=== PATIENT | female | born 1950 | race Asian ===

== ENCOUNTER 2018-10-10 15:58 | Inpatient (IN) | payer OTHER ==
[2018-10-10 20:06] LABS: ADD MAN DIFF? NO
[2018-10-10 20:11] LABS: WHITE BLOOD COUNT 4.1 10^3/ul (4.8-10.8)
[2018-10-10 20:11] LABS: EOSINOPHILS # 0.1 10^3/ul (0.0-0.5); EOSINOPHILS % 1.7 % (0.0-7.0); HEMATOCRIT 38.9 % (37.0-47.0); HEMOGLOBIN 12.5 g/dl (12.0-16.0); LYMPHOCYTES # 1.4 10^3/ul (0.8-2.9); LYMPHOCYTES % 35.1 % (15.0-51.0); MEAN CORPUSCULAR HEMOGLOBIN 29.6 pg (29.0-33.0); MEAN CORPUSCULAR HGB CONC 32.1 g/dl (32.0-37.0); MEAN PLATELET VOLUME 9.6 fl (7.4-10.4); MONOCYTE # 0.4 10^3/ul (0.3-0.9); MONOCYTES % 9.8 % (0.0-11.0); NEUTROPHIL # 2.1 10^3/ul (1.6-7.5); NEUTROPHILS % 52.2 % (39.0-77.0); PLATELET COUNT 216 10^3/UL (140-415); RED BLOOD COUNT 4.23 10^6/ul (4.20-5.40); RED CELL DISTRIBUTION WIDTH 13.7 % (11.5-14.5)
[2018-10-10 20:24] LABS: INR 0.87; PROTIME 11.9 Sec (11.9-14.9); PT RATIO 0.9
[2018-10-10 20:25] LABS: PARTIAL THROMBOPLASTIN TIME 27.6 Sec (23.0-35.0)
[2018-10-10 20:26] LABS: ALANINE AMINOTRANSFERASE 17 IU/L (13-69); ALBUMIN 4.4 g/dl (3.3-4.9); ALBUMIN/GLOBULIN RATIO 1.04; ALKALINE PHOSPHATASE 79 IU/L (42-121); ANION GAP 10 (5-13); ASPARTATE AMINO TRANSFERASE 31 IU/L (15-46); BILIRUBIN,INDIRECT 0.5 mg/dl (0-1.1); BILIRUBIN,TOTAL 0.5 mg/dl (0.2-1.3); BLOOD UREA NITROGEN 16 mg/dl (7-20); CALCIUM 9.2 mg/dl (8.4-10.2); CARBON DIOXIDE 32 mmol/L (21-31); CHLORIDE 103 mmol/L (97-110); CREATININE 0.65 mg/dl (0.44-1.00); Estimated GFR > 60 mL/min (>60); GLUCOSE 157 mg/dl (70-220); POTASSIUM 3.1 mmol/L (3.5-5.1); SODIUM 145 mmol/L (135-144); TOTAL PROTEIN 8.6 g/dl (6.1-8.1)
[2018-10-10 20:38] LABS: B-TYPE NATRIURETIC PEPTIDE 119 PG/ML (0-125); TROPONIN-I < 0.012 ng/ml (0.000-0.120)
[2018-10-10 22:25] LABS: LACTIC ACID 1.1 mmol/L (0.5-2.0)
[2018-10-11] MEDS ORDERED: NACL 0.9% 3 ML SYG IV
[2018-10-11] MEDS ORDERED: ONDANSETRON 4 MG INJ IV
[2018-10-11] MEDS ORDERED: ACETAMINOPHEN 325 MG TAB PO
[2018-10-11] MEDS ORDERED: ALBUTEROL/IPRATROPIUM (NEB) 3 ML AMP HHN
[2018-10-11] MEDS: FUROSEMIDE 20 MG INJ IV ×2 (00:21→06:00)
[2018-10-11 00:24] LABS: CREATINE KINASE 74 IU/L (23-200)
[2018-10-11 00:25] LABS: LACTIC ACID 0.9 mmol/L (0.5-2.0)
[2018-10-11 00:37] LABS: CK INDEX 0.7; CK-MB 0.54 ng/ml (0.0-2.4); TROPONIN-I < 0.012 ng/ml (0.000-0.120)
[2018-10-11 04:34] LABS: ADD MAN DIFF? NO
[2018-10-11 04:35] LABS: WHITE BLOOD COUNT 3.9 10^3/ul (4.8-10.8)
[2018-10-11 04:35] LABS: EOSINOPHILS # 0.1 10^3/ul (0.0-0.5); EOSINOPHILS % 1.8 % (0.0-7.0); HEMATOCRIT 37.8 % (37.0-47.0); HEMOGLOBIN 12.1 g/dl (12.0-16.0); LYMPHOCYTES # 1.1 10^3/ul (0.8-2.9); LYMPHOCYTES % 28.5 % (15.0-51.0); MEAN CORPUSCULAR HEMOGLOBIN 28.9 pg (29.0-33.0); MEAN CORPUSCULAR VOLUME 90.4 fl (82.0-101.0); MEAN PLATELET VOLUME 10.6 fl (7.4-10.4); MONOCYTE # 0.4 10^3/ul (0.3-0.9); MONOCYTES % 11.1 % (0.0-11.0); NEUTROPHIL # 2.2 10^3/ul (1.6-7.5); NEUTROPHILS % 57.3 % (39.0-77.0); PLATELET COUNT 210 10^3/UL (140-415); RED BLOOD COUNT 4.18 10^6/ul (4.20-5.40); RED CELL DISTRIBUTION WIDTH 13.8 % (11.5-14.5)
[2018-10-11 04:44] LABS: HEMOGLOBIN A1C 7.8 % (0-5.9)
[2018-10-11 04:57] LABS: ALANINE AMINOTRANSFERASE 30 IU/L (13-69); ALBUMIN 3.7 g/dl (3.3-4.9); ALBUMIN/GLOBULIN RATIO 0.92; ALKALINE PHOSPHATASE 88 IU/L (42-121); ANION GAP 7 (5-13); ASPARTATE AMINO TRANSFERASE 25 IU/L (15-46); BILIRUBIN,INDIRECT 0.5 mg/dl (0-1.1); BILIRUBIN,TOTAL 0.5 mg/dl (0.2-1.3); BLOOD UREA NITROGEN 14 mg/dl (7-20); CALCIUM 8.7 mg/dl (8.4-10.2); CARBON DIOXIDE 30 mmol/L (21-31); CHLORIDE 107 mmol/L (97-110); CHOLESTEROL 198 mg/dl (100-200); CREATINE KINASE 73 IU/L (23-200); CREATININE 0.58 mg/dl (0.44-1.00); Estimated GFR > 60 mL/min (>60); GLUCOSE 175 mg/dl (70-220); HDL CHOLESTEROL 65 mg/dl (35-98); LDL CHOLESTEROL,CALCULATED 114 mg/dl; MAGNESIUM 1.9 mg/dl (1.7-2.5); SODIUM 144 mmol/L (135-144); TOTAL PROTEIN 7.7 g/dl (6.1-8.1); TRIGLYCERIDES 97 mg/dl (0-149)
[2018-10-11 05:02] LABS: POTASSIUM 2.7 mmol/L (3.5-5.1)
[2018-10-11 05:08] LABS: CK INDEX 0.6; CK-MB 0.46 ng/ml (0.0-2.4); TROPONIN-I < 0.012 ng/ml (0.000-0.120)
[2018-10-11] MEDS ORDERED: GLUCOSE GEL 15 GRAM TUBE PO ×2 (06:00)
[2018-10-11] MEDS ORDERED: GLUCOSE GEL 15 GRAM TUBE BUCCAL (06:00)
[2018-10-11] MEDS ORDERED: DEXTROSE 50% 50 ML SYRINGE IV ×2 (06:00)
[2018-10-11] MEDS ORDERED: GLUCAGON 1 MG INJ IM (06:00)
[2018-10-11] MEDS: POTASSIUM CHLORIDE 100 ML IVPB ×3 (06:56→12:00)
[2018-10-11] MEDS: ACCU-CHEK XX ×4 (07:42→20:12)
[2018-10-11] MEDS ORDERED: PIOGLITAZONE 45 MG TAB PO (09:00)
[2018-10-11] MEDS: GABAPENTIN 100 MG CAP PO (09:24)
[2018-10-11] MEDS: PIOGLITAZONE 15 MG TAB PO (09:24)
[2018-10-11] MEDS: ASPIRIN (EC) 81 MG TAB PO (09:24)
[2018-10-11] MEDS: ATENOLOL 25 MG TAB PO (09:25)
[2018-10-11] MEDS: AMLODIPINE 10 MG TAB PO (09:25)
[2018-10-11] MEDS: HEPARIN 5,000 UNIT/1 ML VIAL SC ×2 (09:29→20:23)
[2018-10-11] MEDS: metFORMIN 500 MG TAB PO (12:32)
[2018-10-11] MEDS: LINAGLIPTIN 5 MG TABLET PO (12:33)
[2018-10-11] MEDS: POTASSIUM CHLORIDE (SR) 20 MEQ TAB PO (16:17)
[2018-10-11] MEDS: ATORVASTATIN 10 MG TAB PO (20:14)
[2018-10-11] MEDS: MAGNESIUM SULFATE 3 GM in DEXTROSE 5% 100 ML IVPB (21:24)
[2018-10-12 06:17] LABS: ADD MAN DIFF? NO
[2018-10-12 06:22] LABS: WHITE BLOOD COUNT 3.4 10^3/ul (4.8-10.8)
[2018-10-12 06:22] LABS: BASOPHILS % 1.2 % (0.0-2.0); EOSINOPHILS # 0.1 10^3/ul (0.0-0.5); EOSINOPHILS % 3.2 % (0.0-7.0); HEMATOCRIT 36.1 % (37.0-47.0); HEMOGLOBIN 11.6 g/dl (12.0-16.0); LYMPHOCYTES # 1.1 10^3/ul (0.8-2.9); LYMPHOCYTES % 33.1 % (15.0-51.0); MEAN CORPUSCULAR HEMOGLOBIN 29.3 pg (29.0-33.0); MEAN CORPUSCULAR HGB CONC 32.1 g/dl (32.0-37.0); MEAN CORPUSCULAR VOLUME 91.2 fl (82.0-101.0); MEAN PLATELET VOLUME 11.1 fl (7.4-10.4); MONOCYTE # 0.4 10^3/ul (0.3-0.9); MONOCYTES % 10.9 % (0.0-11.0); NEUTROPHIL # 1.8 10^3/ul (1.6-7.5); NEUTROPHILS % 51.3 % (39.0-77.0); PLATELET COUNT 215 10^3/UL (140-415); RED BLOOD COUNT 3.96 10^6/ul (4.20-5.40); RED CELL DISTRIBUTION WIDTH 13.7 % (11.5-14.5)
[2018-10-12 07:07] LABS: ANION GAP 7 (5-13); BLOOD UREA NITROGEN 24 mg/dl (7-20); CALCIUM 8.9 mg/dl (8.4-10.2); CARBON DIOXIDE 25 mmol/L (21-31); CHLORIDE 109 mmol/L (97-110); CREATININE 0.65 mg/dl (0.44-1.00); Estimated GFR > 60 mL/min (>60); GLUCOSE 178 mg/dl (70-220); MAGNESIUM 2.2 mg/dl (1.7-2.5); POTASSIUM 3.7 mmol/L (3.5-5.1); SODIUM 141 mmol/L (135-144)
[2018-10-12] MEDS: ACCU-CHEK XX ×2 (07:51→11:28)
[2018-10-12] MEDS: metFORMIN 500 MG TAB PO (08:27)
[2018-10-12] MEDS: LINAGLIPTIN 5 MG TABLET PO (08:27)
[2018-10-12] MEDS: GABAPENTIN 100 MG CAP PO (08:27)
[2018-10-12] MEDS: PIOGLITAZONE 15 MG TAB PO (08:27)
[2018-10-12] MEDS: ATENOLOL 25 MG TAB PO (08:28)
[2018-10-12] MEDS: ASPIRIN (EC) 81 MG TAB PO (08:28)
[2018-10-12] MEDS: AMLODIPINE 10 MG TAB PO (08:28)
[2018-10-12] MEDS: FUROSEMIDE 40 MG TAB PO (08:28)
[2018-10-12] MEDS: HEPARIN 5,000 UNIT/1 ML VIAL SC (08:39)
[2018-10-12] MEDS ORDERED: FUROSEMIDE 20 MG TAB PO (09:00)
[2018-10-13] MEDS ORDERED: FUROSEMIDE 20 MG TAB PO (06:00)
[2018-10-13] MEDS ORDERED: LISINOPRIL 5 MG TAB PO (09:00)
== END 2018-10-12 16:16 | disposition home or self-care (01) | DRG 293 ==
LOC: MS3 22:22 → E/R 15:58 → TEL 10-11 17:48
DX: I11.0 Hypertensive heart disease with heart failure (principal); E11.9 Type 2 diabetes mellitus without complications; I50.33 Acute on chronic diastolic (congestive) heart failure; E78.5 Hyperlipidemia, unspecified; E87.6 Hypokalemia; R07.89 Other chest pain; R91.1 Solitary pulmonary nodule; Z79.82 Long term (current) use of aspirin; Z79.84 Long term (current) use of oral hypoglycemic drugs
CPT/HCPCS: 36415; 71045; 71250; 80048; 80053; 80061; 82550; 82553; 82962; 83036; 83605; 83735; 83880; 84443; 84484; 85025; 85610; 85730; 93005; 93306; 99285-25